=== PATIENT | female | born 1985 | race Caucasian/White ===

== ENCOUNTER 2020-10-19 15:17 | Emergency (ER) | payer MEDICARE ==
[~2020-10-19] VITALS: Ht 162.6 cm; Wt 105.0 kg
[2020-10-19] MEDS ORDERED: ACETAMINOPHEN 325MG TABLET PO STA (15:41)
[2020-10-19] MEDS ORDERED: ACET-2708 PO (17:00)
[2020-10-19 17:20] VITALS: BP 135/73
== END 2020-10-19 17:26 | disposition home or self-care (01) ==
LOC: ER 15:49
DX: O9A.212 Injury, poisoning and certain other consequences of external causes complicating pregnancy, second trimester (principal); M25.572 Pain in left ankle and joints of left foot; Z3A.20 20 weeks gestation of pregnancy
CPT/HCPCS: 93971; 99284

== ENCOUNTER 2021-11-07 14:53 | Emergency (ER) | payer MEDICAID, MEDICARE ==
[~2021-11-07] VITALS: Ht 165.1 cm; Wt 125.0 kg
[~2021-11-07 14:53] MED LIST: ACET-2708 PO
[2021-11-07 15:03] VITALS: BP 124/76
[2021-11-07] MEDS ORDERED: CEPH500C2 MT (15:58)
[2021-11-07] MEDS ORDERED: IBUP-2029 MT (15:58)
== END 2021-11-07 19:34 | disposition home or self-care (01) ==
LOC: ER 14:53
DX: T63.441A Toxic effect of venom of bees, accidental (unintentional), initial encounter (principal); L03.115 Cellulitis of right lower limb; Y92.89 Other specified places as the place of occurrence of the external cause
CPT/HCPCS: 99283